=== PATIENT | female | born 1945 | race Caucasian/White ===

== ENCOUNTER 2019-11-08 09:28 | Inpatient (IN) ==
[2019-11-08 11:04] LABS: BASO# 0.02 X1000 (0.0-0.2); BASO% 0.2 % (0.0-0.8); EOS# 0.07 X1000 (0.0-0.7); EOS% 0.6 % (0.0-10.0); HEMATOCRIT 37.8 % (37.0-47.0); HEMOGLOBIN 11.7 g/dL (12.0-16.0); IMM GRAN# 0.04 X1000 (0.0-0.04); IMM GRAN% 0.4 % (0.0-0.5); LYMPH# 1.45 X1000 (1.2-3.4); LYMPH% 13.4 % (20.5-51.1); MCV 90.4 FL (81-99); MONO# 0.62 X1000 (0.11-0.59); MONO% 5.7 % (1.7-9.3); MPV 9.2 FL (7.4-10.4); NEUT% 79.7 % (42.2-75.2); PLT 220 X1000 (130-400); RBC 4.18 XMIL (4.2-5.4); RDW 13.8 % (11.5-14.5)
[2019-11-08 11:33] LABS: ALB/GLOB RATIO 1.2; ALBUMIN 3.5 g/dL (3.5-5.0); CALCIUM 9.4 mg/dL (8.8-10.2); POTASSIUM 3.9 mmol/L (3.5-5.1); TOTAL BILIRUBIN 0.73 mg/dL (0.20-1.00); TOTAL PROTEIN 6.4 g/dL (6.3-8.3)
[2019-11-08 11:37] LABS: INR 0.98; PROTIME 13.1 Seconds (11.0-16.0); PTT 30.4 Seconds (22.3-41.8)
--- NOTE | 2019-11-08 13:06 | EKG Report ---
Test Performed on : 11/08/2019 12:46:35 PM Test Reason : CP Blood Pressure : / mmHG Vent. Rate : 066 BPM Atrial Rate : 066 BPM P-R Int : 166 ms QRS Dur : 070 ms QT Int : 378 ms P-R-T Axes : 025 011 017 degrees QTc Int : 396 ms Sinus rhythm. with occasional premature ventricular complexes. Otherwise normal ECG No previous ECGs available Unconfirmed Result
[2019-11-08] MEDS ORDERED: ZOFRAN IV PRN (13:16)
--- NOTE | 2019-11-08 13:55 | HISTORY AND PHYSICAL ---
HISTORY OF PRESENT ILLNESS: This is a 74-year-old, patient of Dr. Steve Beaver. She had surgery on her left shoulder, I think it was shoulder cuff repair per Dr. Piper, and he had followup with her in the clinic. Her left leg is swollen in comparison to the right, and found a large deep venous thrombosis extending from her groin to her knee. She has already been on Eliquis because she had peripheral vascular disease, and I believe she has bilateral femoral stents and maybe iliac stents, I am not sure, but this was done in 2014. Apparently last year, she had thrombosis of these stents, and her vascular surgeon removed these clots, and she was put on Eliquis. OTHER PAST MEDICAL HISTORY: 1. Hypercholesterolemia, which is controlled. 2. Primary hypothyroidism. She is on Synthroid. 3. She has a newly-diagnosed DVT in the left leg. 4. Peripheral vascular disease. Bilateral femoral stents, it is my understanding, done in 2014, and then thrombectomy last year, and been on Eliquis since that time. PAST SURGICAL HISTORY: She has had lower lumbar surgery, I am not sure if it was kyphoplasty, but she had compression fracture, what sounds like a fracture of L5. This was done in August. Left shoulder surgery done on Thursday, today is Thursday, so it was done 11/04/2019. She had TMJ surgery or jaw surgery per Dr. Lion years ago because of headaches from a crossbite. She has had right knee surgery, I think this was a torn meniscus. Arthroscopic surgery on the left as well, I think this was arthroscopic x2 per Dr. Loco. SOCIAL HISTORY: Negative for tobacco. Negative for ethanol. FAMILY HISTORY: Mother and father are . She has 3 sisters, I think, still living. She lost a twin sister to congestive heart failure about a year ago. ALLERGIES: Allergic to Demerol, IV contrast, codeine, and Phenergan. REVIEW OF SYSTEMS: Constitutional: She does not report any recent weight gain or loss or change in appetite. No fever or chills. HEENT: No change in visual or hearing acuity. Neck: No neck pain or adenopathy. Respiratory: No increased work of breathing or pleuritic pain or productive cough. Cardiovascular: No squeezing or pressure chest pain. No palpitations. Musculoskeletal/Neurologic: Just her left shoulder is sore from surgery. Lower back pain, which is chronic. GI/: No change in her bowel habits. No gross hematochezia. No gross hematuria or dysuria reported. Endocrinologic/hemologic: She has hypothyroidism. She is on Synthroid. Recently, it was checked, and she said it was normal. Skin: Denies any rashes. Extremities: She does note swelling in her left lower extremity from the groin on down to her foot. PHYSICAL EXAMINATION: GENERAL: In the emergency room, a well-developed, well-nourished, white female, awake, alert, and oriented x3, pleasant. VITAL SIGNS: Temp 96.8 degrees, pulse 65, respirations 20, blood pressure 140/80. HEENT: Pupils are equal and round. Oral and nasal mucosa: No sign of mucosal lesions. NECK: Supple. No adenopathy. No thyromegaly. LUNGS: Clear in all lung dorsey. CARDIOVASCULAR: Regular rhythm and rate without murmur or S3. PMI nondisplaced. Carotid, radial, and femoral pulses 2+ and symmetrical. ABDOMEN: Soft, nondistended, nontender. EXTREMITIES: Left leg was quite a bit larger in circumference in her thigh and lower calf than the right leg. No tenderness or pain. There were some light areas of ecchymoses appreciated. No pitting edema. SKIN: Without significant rashes. LABORATORY DATA: White count 10,800, hematocrit 37, platelet count 220,000. Sodium 141, potassium 3.9, chloride 104, bicarb 24, BUN 18, creatinine 1.0, blood sugar 109, calcium 9.4. AST was 49, ALT is 51, alkaline phosphatase is 239, albumin 3.5. ProTime 13.1, INR 0.98. REVIEW OF HOME MEDICATIONS: She is on Eliquis. She only takes it once a day by these notes. She takes ascorbic acid, vitamin E, and biotin combination for nails, and then a biotin gummy she takes once a day. Lipitor 1 tablet at bedtime, tart keith capsule 1 a day, Caltrate plus tablet 1 a day, cinnamon 1 tablet daily, Lasix 20 mg a day as needed, Osteo Bi-Flex tablet 1 a day, Synthroid 1 tablet daily, lorazepam 1 tablet p.o. b.i.d. (I am not sure of the milligram strength on that), Geritol 1 a day, omeprazole 1 a day (there again, I am not sure if that is a 20 or 40 mg), and Adipex-P 1 capsule p.o. daily. ASSESSMENT AND PLAN: 1. Deep venous thrombosis, left leg, probably secondary to her recent surgery, immobilization. She has a history of peripheral vascular disease, for which she was on Eliquis, but she was only apparently taking that once a day. We are going to put her on Lovenox, and I think we probably need to keep her fairly still in the bed for 48 hours, and then hopefully we can release her, but will put her on a higher dose of Eliquis 5 mg twice a day is what we will discharge her on. 2. Status post left shoulder capsule repair, I believe. I will ask Dr. Piper to follow along. I think he just recently saw her in the office and sent her here to the hospital. 3. History of peripheral vascular disease. She had stents placed in both proximal arteries, I think the femoral artery, and apparently she has had thrombosis of these in the past, that is why she was on Eliquis. Appears to have good blood flow in both lower extremities at this time. 4. Hypercholesterolemia, on Lipitor. Will continue her Lipitor. 5. Primary hypothyroidism. Continue her present Synthroid. Again, we need to get the milligram doses on these medicines. 6. Will continue her on omeprazole just for gastrointestinal prophylaxis. Will put her on 40 mg by mouth daily. 7. Chronic lower back pain and osteoarthritis. Aware. 8. Obesity. We will hold the Adipex for now. cc: Manuel Villanueva MD
[2019-11-08] MEDS: LOVENOX SUBQ SCH (14:27)
--- NOTE | 2019-11-08 14:45 | PROVIDER DOCUMENTATION ---
This chart was entered by Breonna Mehta Scribe, acting as scribe for Pj Almonte CRNP. HPI-General Adult - General Chief Complaint: Extremity Pain Stated Complaint: LT LEG PAIN Time Seen by Provider: 11/08/19 09:39 Source: patient, family () Allergies/Adverse Reactions: Patient Allergies Allergy/AdvReac Type Severity Reaction Status Date / Time codeine [Codeine] Allergy Intermediate ITCHING Verified 11/08/19 09:54 lorazepam [From Ativan] Allergy Intermediate Unknown Verified 11/08/19 09:54 meperidine HCl * Allergy Intermediate NAUSEA/VOMI Verified 11/08/19 09:54 [From Demerol] TING mirtazapine [From Remeron] Allergy Intermediate Unknown Verified 11/08/19 09:54 nalbuphine HCl * Allergy Unknown Verified 11/08/19 09:54 [From Nubain] promethazine HCl * Allergy NAUSEA Verified 11/08/19 09:54 [From Phenergan] Home Medications: Home Medication List Medication Instructions Recorded Confirmed Last Taken Type Furosemide [Lasix] 20 mg PO DAILY PRN 08/02/12 11/08/19 08/03/12 15:00 History Apixaban [Eliquis] 1 tab PO DAILY 11/08/19 11/08/19 11/07/19 History Ascorbic Acid/Vitamin E/Biotin 1 tab PO DAILY 11/08/19 11/08/19 11/07/19 History [Hair Skin Nails-Biotin Gummies] Atorvastatin Calcium [Lipitor] 1 tab PO QHS 11/08/19 11/08/19 11/07/19 History C/Sourcherry/Celery/Grape Seed 1 cap PO DAILY 11/08/19 11/08/19 11/07/19 History [Tart Guzmán Capsule] Calcium Carb/Vit D3/Minerals 1 tab PO DAILY 11/08/19 11/08/19 11/07/19 History [Caltrate Plus Tablet] Cinnamon Bark [Cinnamon] 1 cap PO DAILY 11/08/19 11/08/19 11/07/19 History Glucosamine/D3/Boswellia Micheline 1 tab PO DAILY 11/08/19 11/08/19 11/07/19 History [Osteo Bi-Flex Tablet] Levothyroxine Sodium [Synthroid] 1 tab PO DAILY 11/08/19 11/08/19 11/07/19 History Lorazepam 1 tab PO BID PRN 11/08/19 11/08/19 Unknown History Multivit-Min36/Iron/Folic Acid 1 tab PO DAILY 11/08/19 11/08/19 11/07/19 History [Geritol Complete Tablet] Omeprazole 1 cap PO DAILY 11/08/19 11/08/19 11/07/19 History Phentermine HCl [Adipex-P] 1 cap PO DAILY 11/08/19 11/08/19 11/07/19 History - History of Present Illness -Gen Adult Nature of Presenting Problems: 74 yowf presents to the ed with c/o DVT in LLE. pt sts had sx Thursday on left shoulder 11/04/[address] Martinez and noted swelling in LLE later that night. pt was off blood thinner 5 days prior to sx. pt had US done today and once home got a call and was told to come to ED due to DVT in LLE. Location of Pain/Injury: reports: lower extremity (L) Pain Radiation: reports: no radiation Quality of Pain: reports: dull Severity: reports: moderate Onset/Duration: reports: other (11/04/19) Timing: reports: still present, getting worse Context/Activities at Onset: reports: other (recent sx) Modifying Factors: improves with: nothing Associated Symptoms: reports: trouble walking, other (LLE). denies: back/neck pain, chest pain, cough, diarrhea, fever/chills, headaches, nausea, shortness of breath, vomiting Similar Symptoms Previously?: Yes (hx of DVT) Recently seen or treated by another doctor?: Yes (dr martinez sx) Review of Systems - Adult - REVIEW OF SYSTEMS - ADULT Constitutional: denies: chills, fever Eyes: reports: no symptoms reported Ears, Nose, Mouth & Throat: reports: no symptoms reported Cardiovascular: denies: chest pain, palpitations Respiratory: denies: cough, shortness of breath, wheezing Gastrointestinal: denies: abdominal pain, diarrhea, nausea, vomiting Genitourinary: reports: no symptoms reported Musculoskeletal: reports: see HPI, other (LLE). denies: back pain Integumentary: reports: no symptoms reported Neurological: denies: dizziness/vertigo, headache/migraines Psychiatric: reports: no symptoms reported Endocrine: reports: no symptoms reported Hematologic/Lymphatic: reports: see HPI, blood clots Allergic/Immunologic: reports: no symptoms reported All Other Systems: Reviewed and Negative Past History - Adult - PAST MEDICAL HISTORY-ADULT Review of Records: reports: Old Records Reviewed, Nursing Assessment Review, Medications Reviewed, Social history reviewed & non-contributory. Major Childhood Illnesses: reports: denies history Cardiovascular: reports: blood clots Respiratory: reports: denies history Gastrointestinal: reports: denies history Obstetrical/Gynecological: reports: denies history Genitourinary: reports: denies history Musculoskeletal: reports: denies history Neurological: reports: denies history Psychiatric: reports: anxiety Endocrine/Immune: reports: thyroid disorder Other Conditions: reports: denies history - PRIOR SURGERIES/PROCEDURES Surgical/Procedure History: reports: recent surgery ([id number]), cholecystectomy, hysterectomy, joint replacement - IMMUNIZATION STATUS Childhood Immunizations: See Nurse Assessment Flu Vaccine: See Nurse Assessment - FAMILY HISTORY Family History: reviewed, not pertinent - SOCIAL HISTORY Smoking: denies Substance Use: denies Living Situation: family Physical Exam-General - PHYSICAL EXAM-ADULT Initial Vital Signs Reviewed: Yes - CONSTITUTIONAL General Appearance: appears well, alert, no apparent distress, obese, anxious - EYES Eyes: PERRL/EOMI, pink conjunctivae - HEAD, EARS, NOSE, MOUTH & THROAT HENMT: moist mucous membranes - NECK Neck: full range of motion, supple, normal inspection - RESPIRATORY Respiratory: lungs clear, normal breath sounds, no respiratory distress, no accessory muscle use - CARDIOVASCULAR Cardiovascular: normal peripheral pulses, regular rate, rhythm - CHEST (BREASTS) Chest/Breast: deferred - GASTROINTESTINAL (ABDOMEN) Abdominal Exam: normal bowel sounds, non tender, soft - GENITOURINARY Female Genitalia/Pelvic Exam: deferred Rectal Exam: deferred Hemoccult Exam: deferred - MUSCULOSKELETAL Back Exam: normal inspection, no vertebral tenderness Extremity: normal range of motion, normal capillary refill, pelvis stable, calf tenderness (L), swelling (LLE), tenderness (LLE), other (ecchymosis LLE) Peripheral Pulses: dorsalis-pedis (L): 1+ - SKIN Integumentary: normal turgor, warm/dry, ecchymosis (LLE), swelling (LLE), tenderness (LLE) - NEUROLOGIC Neurologic: grossly normal - PSYCHIATRIC Psych/Mental Status: normal mood/affect, normal thought content, normal thought process, oriented x 3 Progress - PLAN OF CARE/RESULTS Progress/Plan/Lab Results: Vital Signs - 8 hr 11/08/19 09:31 11/08/19 09:49 11/08/19 09:52 Temperature 96.8 F L Pulse Rate 64 67 Respiratory Rate 18 21 Blood Pressure 140/80 148/78 O2 Sat by Pulse Oximetry 99 98 99 11/08/19 10:00 Temperature Pulse Rate 66 Respiratory Rate 21 Blood Pressure O2 Sat by Pulse Oximetry 98 Result Diagrams: 11/08/19 10:56 11/08/19 10:56 - REASSESSMENT Reassessment #1 Time Reassessed: 10:31 (discussed CTA with Dr Bragg, states no need due to the treatment is the same) Reassessment #2 Time Reassessed: 12:15 (pt and family updated of propable admission) - EKG 1 Time of EKG reading by physician:: 12:46 EKG Read and Signed by:: Favian Bragg EKG Interpretation (*Must complete 3 of following elements*): Normal Rate: 66 Rhythm: sinus rhythm with occ pvc [place]: normal QRS: PVC's LA Interval: normal ST Wave: normal - ULTRASOUND (By Radiology) 1 US Study: Lower Ext Impression: See EMR Report (DVT in L common femoral - verbal report from groin to the knee) - CONSULTS/PCP/HOSPITALIST Notification #1 *Consult/PCP/Hospitalist*: JAMEE Mattson hospitalist Time Discussed: 11:53 Departure - Departure Date of Disposition Decision: 11/08/19 Time of Disposition Decision: 11:54 DIAGNOSIS: DVT (deep venous thrombosis) Qualifiers: DVT location: lower extremity Affected thrombotic vein of extremity: femoral Chronicity: acute Laterality: left Qualified Code(s): I82.412 - Acute embolism and thrombosis of left femoral vein Disposition: ADMITTED INPATIENT 09 Certified Medical Emergency: Emergent Condition: Stable Additional Instructions: . Referrals and Follow-Ups: Steve Beaver [Primary Care Provider] - Discharge Education: Deep Vein Thrombosis - Critical Care Note This patient required my direct & personal management of CC.: No Attestation - Physician/ KARLENE Attestation Patient care was provided by Advanced Practice Provider:: Yes Advanced Practice Provider:: Pj Almonte Advanced Practice Provider documentation review:: The Mid-level provider documentation, treatment plan and medical decision making was reviewed by the physician who agrees with all treatment and medical decision making by the MLP. The physician spent face to face time with patient:: No Advanced Practice Provider documentation review:: Supervising physician onsite and consulted in the evaluation and care of this patient. The physician did not have a face to face encounter with the patient. This chart was documented by the indicated scribe, (Breonna Mehta Scribe) and accurately reflects the services I performed and decisions made by me, Pj Almonte, JAMEE, as attested by the provider's signature.
[2019-11-08] MEDS ORDERED: LIPITOR PO SCH (21:00)
[2019-11-08] MEDS: NORCO-7.5 PO PRN (22:14)
[2019-11-09] MEDS: LOVENOX SUBQ SCH ×2 (01:41→14:09)
[2019-11-09] MEDS: PRILOSEC PO SCH (06:41)
[2019-11-09] MEDS ORDERED: SYNTHROID PO SCH (07:00)
[2019-11-09 07:20] LABS: BASO# 0.01 X1000 (0.0-0.2); BASO% 0.1 % (0.0-0.8); EOS# 0.16 X1000 (0.0-0.7); EOS% 2.4 % (0.0-10.0); HEMATOCRIT 36.1 % (37.0-47.0); HEMOGLOBIN 11.3 g/dL (12.0-16.0); LYMPH# 1.57 X1000 (1.2-3.4); LYMPH% 23.1 % (20.5-51.1); MCH 28.5 PG (27-31); MCHC 31.3 g/dL (33-37); MCV 90.9 FL (81-99); MONO# 0.49 X1000 (0.11-0.59); MONO% 7.2 % (1.7-9.3); MPV 9.2 FL (7.4-10.4); NEUT# 4.57 X1000 (1.4-6.5); NEUT% 67.2 % (42.2-75.2); PLT 226 X1000 (130-400); RBC 3.97 XMIL (4.2-5.4); RDW 13.9 % (11.5-14.5)
[2019-11-09 07:39] LABS: AGAP 13; ALB/GLOB RATIO 1.2; ALBUMIN 3.2 g/dL (3.5-5.0); ALKALINE PHOSPHATASE 198 U/L (32-104); BUN 16 mg/dL (8-22); CALCIUM 9.1 mg/dL (8.8-10.2); CHLORIDE 105 mmol/L (98-107); COSMO 284; CREATININE 0.9 mg/dL (0.5-0.9); ESTIMATED GFR > 60; GLUCOSE 89 mg/dL (70-104); GOT 29 U/L (10-30); GPT 36 U/L (10-36); MAGNESIUM 1.7 mg/dL (1.5-2.7); POTASSIUM 4.1 mmol/L (3.5-5.1); SODIUM 142 mmol/L (136-145); TCO2 24 mmol/L (25-35); TOTAL BILIRUBIN 0.63 mg/dL (0.20-1.00); TOTAL PROTEIN 5.8 g/dL (6.3-8.3)
[2019-11-09 07:44] LABS: INR 1.1; PROTIME 14.4 Seconds (11.0-16.0)
[2019-11-09 07:45] LABS: PTT 43.8 Seconds (22.3-41.8)
[2019-11-09 08:02] LABS: TSH 0.07 uIUmL (0.27-4.20)
[2019-11-09 08:04] LABS: FREE T4 2.05 ng/dL (0.93-1.70)
[2019-11-09] MEDS ORDERED: CALTRATE PLUS TABLET PO SCH (09:00)
[2019-11-09] MEDS: PATIENT'S OWN MED PO SCH ×4 (09:40→09:41)
[2019-11-09] MEDS: CENTRUM SILVER PO SCH (09:41)
[2019-11-09] MEDS: CALTRATE 600 + D PO SCH (09:41)
[2019-11-09] MEDS: NORCO-7.5 PO PRN ×2 (09:42→16:44)
[2019-11-09 10:01] LABS: URINE SOURCE CATH
[2019-11-09 10:07] LABS: BILIRUBIN URINE NEGATIVE (NEGATIVE); BLOOD URINE NEGATIVE (NEGATIVE); COLOR YELLOW; GLUCOSE URINE NEGATIVE (NEGATIVE); KETONE URINE NEGATIVE (NEGATIVE); LEUKOCYTES URINE NEGATIVE (NEGATIVE); NITRITE URINE NEGATIVE (NEGATIVE); PH URINE 5.5; PROTEIN URINE NEGATIVE (NEGATIVE); SP GRAVITY URINE 1.013; TURBIDITY URINE CLEAR (CLEAR); UROBILINOGEN URINE NORMAL (NORMAL)
[2019-11-09 10:09] LABS: UR EPITHELIAL CELLS <10 /HPF (<10); URINE BACTERIA NEGATIVE /HPF; URINE RBC <10 /HPF (<10); URINE WBC <10 /HPF (<10)
--- NOTE | 2019-11-09 10:55 | ORTHOPAEDICS CONSULTATION ---
DATE: 11/09/2019 HISTORY OF PRESENT ILLNESS: Ms. Cuevas is roughly 1 week status post left rotator cuff repair. She had some lower extremity swelling, was evaluated on the and found to have a significant DVT, admitted by the hospitalist for anticoagulation. We were consulted just for followup of the shoulder. She reports predominantly just usual shoulder soreness at this point. She denies any significant increase in pain. Her predominant complaint is some swelling over the left leg. PAST MEDICAL HISTORY: Up-to-date and accurate per the chart. REVIEW OF SYSTEMS: Up-to-date and accurate per the chart. PHYSICAL EXAMINATION: Physical exam reveals left shoulder to be clean and dry. Her arthroscopic incisions are clean and dry with no active bleeding. She has minimal swelling with no signs of complication or infection about the shoulder. ASSESSMENT: 1. Status post left rotator cuff repair. 2. Left lower extremity deep vein thrombosis. PLAN: I have discussed with Ms. Cuevas that she can begin her shoulder rehab when she is discharged from the hospital. She may be here through the remainder of the week to get fully anticoagulated for the extensive DVT. She will have an appointment to follow up with Dr. Piper on the . She can resume therapy next week. We will be available in the interim if needed. cc: Carlos Albert MD
--- NOTE | 2019-11-09 11:49 | PROGRESS NOTE ---
DATE: 11/09/2019 SUBJECTIVE: The patient is resting comfortably in bed, not in any obvious distress. OBJECTIVE: Vital Signs: Temperature is 98.3 degrees, pulse is 65, respiratory rate 17, blood pressure is 142/72, oxygen saturation is 100%. HEENT: She is atraumatic, normocephalic. Cardiovascular: S1, S2. Respiratory: Has evidence of good air entry bilaterally. Abdomen: Obese, nontender. No masses felt. Extremities: Left lower extremity is grossly swollen and also edematous. Central Nervous System: No obvious focal deficits noted. LABORATORY DATA: WBC 6.8, hematocrit is 36.1, with a platelet count of 226,000. INR is 1.10. Sodium is 142, potassium 4.1, chloride is 105, bicarb 24, BUN is 16, creatinine 0.9. . TSH is 0.07, free T4 is 2.05. ASSESSMENT AND PLAN: 1. Deep venous thrombosis, left lower extremity. The patient is currently on Lovenox 100 mg subcutaneously every 12 hours. The patient will need to be transitioned to an oral agent, either Eliquis or Xarelto, once she is clinically stable and ready for discharge home. 2. History of left rotator cuff repair. Optimize pain control. Recommend physical therapy when considered appropriate by the Orthopedic team. Orthopedics is following. 3. Hypothyroidism. The patient's thyroid function tests indicate that she may be getting excess of thyroid hormone. As such, I will adjust her levothyroxine dose downwards. 4. History of peripheral arterial disease. Aware. 5. Hyperlipidemia. Continue atorvastatin. 6. Anemia. Check iron studies, along with B12 and folate level. 7. History of osteoarthritis. Optimize pain control. cc: Miguel Pearson MD [facility]
[2019-11-09] MEDS: LIPITOR PO SCH (20:46)
[2019-11-10] MEDS: LOVENOX SUBQ SCH ×2 (01:18→14:04)
[2019-11-10] MEDS: PRILOSEC PO SCH (06:09)
[2019-11-10] MEDS: SYNTHROID PO SCH (06:09)
[2019-11-10 07:51] LABS: BASO# 0.03 X1000 (0.0-0.2); BASO% 0.5 % (0.0-0.8); EOS# 0.12 X1000 (0.0-0.7); EOS% 2.2 % (0.0-10.0); HEMATOCRIT 37.2 % (37.0-47.0); HEMOGLOBIN 11.5 g/dL (12.0-16.0); LYMPH# 1.78 X1000 (1.2-3.4); LYMPH% 32.1 % (20.5-51.1); MCH 28.3 PG (27-31); MCHC 30.9 g/dL (33-37); MCV 91.4 FL (81-99); MONO# 0.41 X1000 (0.11-0.59); MONO% 7.4 % (1.7-9.3); MPV 9.5 FL (7.4-10.4); NEUT% 57.8 % (42.2-75.2); PLT 250 X1000 (130-400); RBC 4.07 XMIL (4.2-5.4); WBC 5.54 X1000 (4.8-10.8)
[2019-11-10 08:14] LABS: AGAP 10; ALB/GLOB RATIO 1.2; ALBUMIN 3.3 g/dL (3.5-5.0); ALKALINE PHOSPHATASE 187 U/L (32-104); BUN 18 mg/dL (8-22); CALCIUM 9.2 mg/dL (8.8-10.2); CHLORIDE 104 mmol/L (98-107); COSMO 281; CREATININE 0.9 mg/dL (0.5-0.9); ESTIMATED GFR > 60; GLUCOSE 98 mg/dL (70-104); GOT 20 U/L (10-30); GPT 27 U/L (10-36); MAGNESIUM 1.9 mg/dL (1.5-2.7); POTASSIUM 4.1 mmol/L (3.5-5.1); SODIUM 140 mmol/L (136-145); TCO2 26 mmol/L (25-35); TOTAL BILIRUBIN 0.58 mg/dL (0.20-1.00)
[2019-11-10 08:19] LABS: IRON SATURATION 17 %; TIBC 225 ug/dL; TOTAL IRON 39 ug/dL (49-151); UNBOUND IRON 186 ug/dL (112-346)
[2019-11-10] MEDS: NORCO-7.5 PO PRN ×2 (09:43→21:00)
[2019-11-10] MEDS: CALTRATE 600 + D PO SCH (09:43)
[2019-11-10] MEDS: CENTRUM SILVER PO SCH (09:43)
[2019-11-10] MEDS: PATIENT'S OWN MED PO SCH ×4 (09:44)
--- NOTE | 2019-11-10 14:44 | Diag Imaging Result Doc PS360 ---
EXAM: CT ANGIOGRM PULMONARY ARTERIES INDICATION: r/o pe TECHNIQUE: This exam was performed using automated exposure control, adjustment of mA or kV according to patient size, and/or use of iterative reconstruction technique. Thin section axial images and 3-D MIPS were obtained. COMPARISON: None. FINDINGS: There is no evidence of pulmonary embolism. There is minimal aortic atherosclerotic calcification. There is no evidence of aortic dissection or aneurysm. There is no cardiomegaly. There is no evidence of significant mediastinal or hilar lymphadenopathy. There is minimal subsegmental atelectasis in the lingula, right middle lobe, and the lower lobes at the bases. The lungs are grossly clear, otherwise. There is no pleural fluid collection and no pneumothorax. Limited views of the upper abdomen reveals lobulated renal contours bilaterally indicating persistent lobulations or renal cortical scarring. The upper abdomen is essentially unremarkable, otherwise. There is thoracic spondylosis. There is no evidence of acute osseous abnormality. IMPRESSION: 1.Mild subsegmental atelectasis at the lower lung zones bilaterally. 2.No evidence of pulmonary embolism or other definite acute chest pathology, otherwise. Electronically signed by Carlos Marcos 11/10/2019 2:41 PM
--- NOTE | 2019-11-10 14:47 | PROGRESS NOTE ---
DATE: 11/10/2019 SUBJECTIVE: Patient seated on the chair. Not in any obvious distress. Has family present in the room. OBJECTIVE: Vital signs: Vital signs are as follows: Temperature 98 degrees, pulse 79, respiratory rate is 19, blood pressure 153/67, oxygen saturation is 100%. HEENT: She is atraumatic, normocephalic. Cardiovascular system: S1, S2. Respiratory system: Has evidence of good air entry bilaterally. Abdomen: Soft, nontender. No masses felt. Extremities: Left lower extremity grossly edematous. LABORATORY DATA: WBC is 5.054, hematocrit is 37.2 with a platelet count of 250. Sodium is 140, potassium 4.1, chloride is 104, bicarbonate 26. BUN is 18, creatinine 0.9. FINAL ASSESSMENT AND PLAN: 1. Deep vein thrombosis left lower extremity. Continue patient on Lovenox 100 mg subcutaneous every 12 hours. We will also obtain a computed tomography angiography of the chest to rule out any evidence of pulmonary embolism. Consult with Surgery to consider putting an inferior vena cava filter. 2. History of left rotator cuff repair. Optimize pain control. Orthopedics following. 3. Hypothyroidism. Continue levothyroxine. 4. History of peripheral arthritis. Aware. 5. History of hyperlipidemia. Continue atorvastatin. 6. Anemia. Follow up on hemoglobin and hematocrit. Transfuse packed red blood cells as needed. 7. History of osteoarthritis. Optimize pain control. 8. Deep vein thrombosis prophylaxis. Patient is currently on Lovenox. cc: Miguel Pearson MD
--- NOTE | 2019-11-10 20:43 | CONSULTATION ---
DATE OF CONSULTATION: 11/10/2019 HISTORY OF PRESENT ILLNESS: Ms. Chuyita Cuevas is a 74-year-old, overweight, white female who recently underwent shoulder surgery and has developed a left lower extremity deep venous thrombosis. She has a history of deep venous thrombosis even a year ago. She also has peripheral vascular disease with history of placement of iliac stents in [place]. She has been on chronic anticoagulation, but it was subtherapeutic because she had some problems with bleeding, and recently she stopped her anticoagulation for this surgery. We were asked to evaluate her for inferior vena cava filter. HOME MEDICATIONS: 1. Eliquis 1 tablet a day. 2. Vitamins. 3. Lipitor. 4. Calcium. 5. Lasix. 6. Lorazepam. 7. Synthroid. 8. Omeprazole. 9. Adipex. ALLERGIES: Codeine, Ativan, Demerol, Remeron, Nubain, and Phenergan. PAST MEDICAL HISTORY: 1. Hypothyroidism. 2. Deep venous thrombosis. 3. Cholecystectomy. 4. Hysterectomy. 5. Joint replacement. 6. Recent shoulder surgery, 11/04/2019. SOCIAL HISTORY: Family was at the bedside. She does not smoke. FAMILY HISTORY: Family history was reviewed with the patient and was noncontributory. REVIEW OF SYSTEMS: 14 point review of systems was performed and was essentially negative except for the History of Present Illness. PHYSICAL EXAMINATION: General: Ms. Chuyita Cuevas is a morbidly obese, white female. She is in no acute distress. She has a sling on for her shoulder. Her left lower extremity is swollen. She is awake, cooperative, no acute distress. HEENT: No jaundice. No oral lesions. No cervical or supraclavicular lymphadenopathy. Heart: Regular rate. Lungs: Clear. Abdomen: Soft without tenderness. Extremities: She had palpable femoral pulses. Her left lower extremity is swollen compared to her right. Both feet are warm. Neurological: She has no focal deficit. IMPRESSION: Recurrent deep venous thrombosis of the lower extremities. A chest CT scan suggests no pulmonary embolus. She has been on subtherapeutic Eliquis because of problems with bleeding last year. Her blood thinner was also stopped recently for her orthopedic procedure. PLAN: I agree with therapeutic doses of Lovenox or even Eliquis at home and as long as she has no bleeding problems, I would avoid inferior vena cava filter at this time. cc: Chaya Mehta MD
[2019-11-10] MEDS: LIPITOR PO SCH (21:00)
[2019-11-11] MEDS: LOVENOX SUBQ SCH ×2 (03:48→14:25)
[2019-11-11] MEDS: PRILOSEC PO SCH (06:48)
[2019-11-11] MEDS: SYNTHROID PO SCH (06:48)
[2019-11-11 07:25] LABS: BASO# 0.03 X1000 (0.0-0.2); BASO% 0.6 % (0.0-0.8); EOS# 0.14 X1000 (0.0-0.7); EOS% 2.8 % (0.0-10.0); HEMATOCRIT 35.8 % (37.0-47.0); HEMOGLOBIN 11.2 g/dL (12.0-16.0); LYMPH# 1.65 X1000 (1.2-3.4); LYMPH% 33.5 % (20.5-51.1); MCHC 31.3 g/dL (33-37); MCV 92.7 FL (81-99); MONO# 0.42 X1000 (0.11-0.59); MONO% 8.5 % (1.7-9.3); MPV 9.4 FL (7.4-10.4); NEUT# 2.69 X1000 (1.4-6.5); NEUT% 54.6 % (42.2-75.2); PLT 244 X1000 (130-400); RBC 3.86 XMIL (4.2-5.4); RDW 14.2 % (11.5-14.5); WBC 4.93 X1000 (4.8-10.8)
[2019-11-11 08:07] LABS: ALB/GLOB RATIO 1.6; ALBUMIN 3.4 g/dL (3.5-5.0); CALCIUM 9.2 mg/dL (8.8-10.2); MAGNESIUM 1.9 mg/dL (1.5-2.7); POTASSIUM 4.4 mmol/L (3.5-5.1); TOTAL BILIRUBIN 0.5 mg/dL (0.20-1.00); TOTAL PROTEIN 5.5 g/dL (6.3-8.3)
[2019-11-11] MEDS: PATIENT'S OWN MED PO SCH ×4 (10:58→10:59)
[2019-11-11] MEDS: CENTRUM SILVER PO SCH (10:58)
[2019-11-11] MEDS: CALTRATE 600 + D PO SCH (10:58)
--- NOTE | 2019-11-11 18:20 | PROGRESS NOTE ---
DATE: 11/11/2019 INTERVAL HISTORY: The patient's left lower extremity still quite swollen. She reports pain with touch or attempting to put weight on that leg. We discussed discharge options including going home with home health versus rehab. The patient has not really ambulated significantly yet. Also awaiting PT evaluation before making a final decision. REVIEW OF SYSTEMS: Twelve point review of systems negative except as per interval history. LABORATORY DATA: WBC 4.9, hemoglobin 11.2, hematocrit 35.8, platelets 244,000. Sodium 142, potassium 4.4, BUN 19, creatinine 1.0. VITAL SIGNS: T-max 98 degrees, pulse 89, respirations 18, blood pressure 144/81. O2 saturation 97% on 2 L via nasal cannula. PHYSICAL EXAMINATION: General: No acute distress. Vitals: As above. HEENT: Normocephalic, atraumatic. Moist mucous membranes. Cardiovascular: Regular rate and rhythm. No murmurs noted. Pulmonary: Clear to auscultation bilaterally. No wheezing, rales, or rhonchi. Abdomen: Soft, nontender, nondistended. Bowel sounds positive. Extremities: Peripheral pulses intact. Left lower extremity still markedly edematous with 3+ pitting edema. Also appears to have some dysesthesias with widespread tenderness to palpation of that limb. Neurologic: Cranial nerves grossly intact. No focal deficits. Psychiatric: Normal mood and affect. Awake, alert, oriented x3. ASSESSMENT AND PLAN: 1. Acute deep venous thrombosis of left lower extremity. The patient has been on Lovenox b.i.d. thus far. She was on Eliquis at home but at a subtherapeutic dose. Surgery was consulted to consider IVC filter, but they thought it would be a better idea to place her on a therapeutic dose of blood thinner and avoid IVC filter. We will go ahead and put on Eliquis to start in the morning. 2. Recent left rotator cuff surgery. Continue pain management. 3. Hypothyroidism. Continue Synthroid. 4. Hyperlipidemia. Continue statin. 5. Anemia stable. Likely anemia of chronic disease. 6. Arthritis. Continue symptomatic treatment. 7. Disposition. Okay at this point to transition to oral anticoagulant. Consider discharge, but patient with recent left shoulder surgery and still with marked swelling of left lower extremity limiting mobility. We will get physical therapy to walk her and see how she does, but strongly suspect she will need rehab placement. Hopefully, if she does better than expected with PT, then may be able to discharge home. Otherwise, anticipate discharge to rehab on Thursday pending bed availability.
[2019-11-11] MEDS: LIPITOR PO SCH (21:11)
[2019-11-12] MEDS: LOVENOX SUBQ SCH ×2 (02:03→14:39)
[2019-11-12] MEDS: SYNTHROID PO SCH (06:17)
[2019-11-12] MEDS: PRILOSEC PO SCH (06:17)
[2019-11-12 07:25] LABS: BASO# 0.02 X1000 (0.0-0.2); BASO% 0.4 % (0.0-0.8); EOS# 0.13 X1000 (0.0-0.7); EOS% 2.8 % (0.0-10.0); HEMATOCRIT 35.2 % (37.0-47.0); HEMOGLOBIN 10.8 g/dL (12.0-16.0); LYMPH# 1.76 X1000 (1.2-3.4); MCH 27.8 PG (27-31); MCHC 30.7 g/dL (33-37); MCV 90.7 FL (81-99); MONO% 8.6 % (1.7-9.3); MPV 9.3 FL (7.4-10.4); NEUT# 2.32 X1000 (1.4-6.5); NEUT% 50.2 % (42.2-75.2); PLT 294 X1000 (130-400); RBC 3.88 XMIL (4.2-5.4); RDW 13.9 % (11.5-14.5); WBC 4.63 X1000 (4.8-10.8)
[2019-11-12 07:58] LABS: ALB/GLOB RATIO 1.3; ALBUMIN 3.2 g/dL (3.5-5.0); CALCIUM 8.9 mg/dL (8.8-10.2); POTASSIUM 4.3 mmol/L (3.5-5.1); TOTAL BILIRUBIN 0.51 mg/dL (0.20-1.00); TOTAL PROTEIN 5.7 g/dL (6.3-8.3)
[2019-11-12] MEDS: CALTRATE 600 + D PO SCH (10:42)
[2019-11-12] MEDS: PATIENT'S OWN MED PO SCH ×4 (10:42→10:43)
[2019-11-12] MEDS: CENTRUM SILVER PO SCH (10:42)
--- NOTE | 2019-11-12 16:02 | PROGRESS NOTE ---
DATE: 11/12/2019 SUBJECTIVE: This patient seems to be feeling better. She does have generalized weakness and pain at the level of the left upper extremity and lower extremity. We have a venous ultrasound done on 11/08/2018 that showed extensive DVT in the left lower extremity. She has been placed on Lovenox twice a day, and now I have placed this patient on Eliquis twice a day. I will start with 10 mg twice a day for 7 days and then 5 twice a day. She used to be on Eliquis, but apparently has been decreased to once a day and then she stopped the medication for the surgery. OBJECTIVE: Vital Signs: Temperature 97.9 degrees, pulse 71, respiratory rate 20, blood pressure 145/64, oxygen saturation 100% on room air. HEENT: Head normocephalic, no trauma. PERRLA. Neck: Supple. No JVD. No masses. Central trachea. Chest: Clear to auscultation. No wheezing. Abdomen: Soft, nontender, nondistended. No hepatosplenomegaly. Extremities: Left lower extremity is swollen around 2+ to 3+ pitting edema. Also, she has some pain to palpation in both legs. Neurological examination: The patient is awake, alert. She is oriented x3. No focal deficits. LABORATORY: WBC 4.6, hemoglobin 10.8, hematocrit 35.2, platelets 294. Sodium 140, potassium 4.3, chloride 105, bicarbonate 25. BUN 20, creatinine 1, glucose 101, calcium 8.9. AST 29, ALT 23, alkaline phosphatase 157, albumin 3.2. ASSESSMENT AND PLAN: 1. Acute deep vein thrombosis of the left lower extremity. This patient has been placed on Lovenox therapeutic twice a day which I which I have stopped. I put her on Eliquis twice a day. At home, it looks like she was taking just once a day and then she was placed on once a day. She had a surgery recently and she stopped completely anticoagulations. Now I will put her back on Eliquis twice a day and monitor. This patient should go to a rehabilitation center. 2. Recent left rotator cuff surgery. Continue with pain management. 3. Hypothyroidism. Continue with Synthroid. 4. Hyperlipidemia. She is on statins. 5. Anemia. Stable. 6. Arthritis. Continue with symptomatic treatment. Overall this patient is better. She is working with physical therapy. I have placed this patient back on Eliquis, but instead of once a day, it is going to be twice a day. I talked to the patient and recommended her to follow a silk screen printer helper/oncologist. 7. Generalized weakness and physical deconditioning. I have requested Deportation Examiner to evaluate this patient for rehab center and she agreed with that. cc: Agustín Jeffery MD
[2019-11-12] MEDS: LIPITOR PO SCH ×2 (19:39→20:08)
[2019-11-12] MEDS: ELIQUIS PO SCH ×2 (19:39→20:08)
[2019-11-13] MEDS: TYLENOL PO PRN ×2 (06:03→22:24)
[2019-11-13] MEDS: NORCO-7.5 PO PRN ×5 (06:04→23:06)
[2019-11-13] MEDS: PRILOSEC PO SCH (06:05)
[2019-11-13] MEDS: SYNTHROID PO SCH (06:05)
[2019-11-13 08:08] LABS: BASO# 0.03 X1000 (0.0-0.2); BASO% 0.6 % (0.0-0.8); EOS# 0.16 X1000 (0.0-0.7); EOS% 3.3 % (0.0-10.0); HEMATOCRIT 35.9 % (37.0-47.0); HEMOGLOBIN 10.9 g/dL (12.0-16.0); LYMPH# 1.68 X1000 (1.2-3.4); LYMPH% 35.1 % (20.5-51.1); MCH 28.7 PG (27-31); MCHC 30.4 g/dL (33-37); MCV 94.5 FL (81-99); MONO# 0.45 X1000 (0.11-0.59); MONO% 9.4 % (1.7-9.3); MPV 9.8 FL (7.4-10.4); NEUT# 2.47 X1000 (1.4-6.5); NEUT% 51.6 % (42.2-75.2); PLT 284 X1000 (130-400); RDW 14.1 % (11.5-14.5); WBC 4.79 X1000 (4.8-10.8)
[2019-11-13 08:31] LABS: ALB/GLOB RATIO 1.1; ALBUMIN 3.1 g/dL (3.5-5.0); POTASSIUM 4.7 mmol/L (3.5-5.1); TOTAL BILIRUBIN 0.56 mg/dL (0.20-1.00); TOTAL PROTEIN 5.9 g/dL (6.3-8.3)
[2019-11-13] MEDS: CALTRATE 600 + D PO SCH (09:26)
[2019-11-13] MEDS: PATIENT'S OWN MED PO SCH ×4 (09:26→09:27)
[2019-11-13] MEDS: CENTRUM SILVER PO SCH (09:26)
[2019-11-13] MEDS: ELIQUIS PO SCH ×2 (09:26→22:23)
[2019-11-13] MEDS ORDERED: MORPHINE IV ONE (13:30)
[2019-11-13] MEDS: MIRALAX PO SCH (13:58)
--- NOTE | 2019-11-13 14:20 | PROGRESS NOTE ---
DATE: 11/13/2019 SUBJECTIVE: This patient seems to be feeling better, but she is complaining of left shoulder pain. As per the patient, she has been out of pain for a couple of days, but she believes she did some movement while she was sleeping, and now the shoulder is painful. She has been getting pain medication. Otherwise her left leg is looking better. I will continue with the same management. OBJECTIVE: Vital Signs: Temperature 97.4 degrees, pulse 63, respiratory rate 20, blood pressure 143/60, oxygen saturation 100% on room air. HEENT: Head normocephalic, no trauma, PERRLA. Neck: Supple. No JVD. No masses. Central trachea. Chest: Clear to auscultation. No wheezing. No rales. Tenderness to palpation at the level of the left shoulder. Abdomen: Soft, nontender, nondistended. No hepatosplenomegaly. Extremities: Left lower extremity is swollen, around 2+ pitting edema. It is getting better though. She has some pain to palpation in both legs. Neurological: The patient is awake, alert. She is oriented x3. No focal deficits but pain at the level of the left shoulder. LABORATORY: WBC 4.7, hemoglobin 10.9, hematocrit 35.9, platelets 284,000. Sodium 139, potassium 4.7, chloride 105, bicarbonate 23, BUN 19, creatinine 1.0, albumin 3.1. ASSESSMENT AND PLAN: 1. Acute deep venous thrombosis of the left lower extremity. This patient has been placed on Lovenox therapeutic twice a day, which I have stopped already and put her on Eliquis twice a day. At home, it looks like she was taking Eliquis as well once a day. She had a surgery recently, and she stopped completely the anticoagulation. 2. Recent left rotator cuff surgery, now painful. Continue with pain management. 3. Hypothyroidism. Continue with Synthroid. 4. Hyperlipidemia. Continue with statins. 5. Anemia. Stable. 6. Arthritis. Continue with symptomatic treatment. 7. Generalized weakness and physical deconditioning. I have requested Clinical Coordinator to evaluate this patient for rehab center placement. I have placed this patient on Eliquis 10 mg p.o. twice a day for 7 days and then will be 5 mg twice a day. The patient seems to understand, and she wants to continue with the treatment. cc: Agustín Jeffery MD
[2019-11-13] MEDS ORDERED: DILAUDID IV ONE (15:25)
[2019-11-13] MEDS: LIPITOR PO SCH (22:23)
[2019-11-14] MEDS: NORCO-7.5 PO PRN ×3 (03:16→10:23)
[2019-11-14] MEDS: PRILOSEC PO SCH (06:46)
[2019-11-14] MEDS: SYNTHROID PO SCH (06:46)
[2019-11-14 08:11] LABS: BASO# 0.02 X1000 (0.0-0.2); BASO% 0.3 % (0.0-0.8); EOS# 0.11 X1000 (0.0-0.7); EOS% 1.7 % (0.0-10.0); HEMATOCRIT 36.1 % (37.0-47.0); HEMOGLOBIN 11.1 g/dL (12.0-16.0); LYMPH# 1.55 X1000 (1.2-3.4); LYMPH% 23.5 % (20.5-51.1); MCHC 30.7 g/dL (33-37); MCV 91.2 FL (81-99); MONO# 0.55 X1000 (0.11-0.59); MONO% 8.3 % (1.7-9.3); MPV 9.5 FL (7.4-10.4); NEUT# 4.36 X1000 (1.4-6.5); NEUT% 66.2 % (42.2-75.2); PLT 343 X1000 (130-400); RBC 3.96 XMIL (4.2-5.4); RDW 13.6 % (11.5-14.5); WBC 6.59 X1000 (4.8-10.8)
[2019-11-14 08:26] LABS: ALB/GLOB RATIO 1.1; ALBUMIN 3.1 g/dL (3.5-5.0); CALCIUM 8.9 mg/dL (8.8-10.2); MAGNESIUM 1.9 mg/dL (1.5-2.7); POTASSIUM 4.3 mmol/L (3.5-5.1); TOTAL BILIRUBIN 0.59 mg/dL (0.20-1.00); TOTAL PROTEIN 5.8 g/dL (6.3-8.3)
[2019-11-14] MEDS: ELIQUIS PO SCH ×2 (10:25→21:16)
[2019-11-14] MEDS: MIRALAX PO SCH (10:25)
[2019-11-14] MEDS: CALTRATE 600 + D PO SCH (10:25)
[2019-11-14] MEDS: CENTRUM SILVER PO SCH (10:25)
[2019-11-14] MEDS: PATIENT'S OWN MED PO SCH ×4 (18:10→18:11)
--- NOTE | 2019-11-14 19:05 | PROGRESS NOTE ---
DATE: 11/14/2019 SUBJECTIVE: Patient seems to be feeling better today compared with yesterday. Her left shoulder pain is better. I will remove the Resendez catheter. No bowel movement today, so she is getting MiraLAX now. The plan is to send this patient to a rehab center. OBJECTIVE: Vital Signs: Temperature 98 degrees, pulse 73, respiratory rate 20, blood pressure 140/64, oxygen saturation 98 on room air. HEENT: Head normocephalic, no trauma. PERRLA. Neck: Supple. No JVD. No masses. Central trachea. Chest: Clear to auscultation. No wheezing. No rales. Tenderness to palpation and some wound due to recent surgery, but they look clean, dry, and intact. Abdomen: Soft, nontender, nondistended. No hepatosplenomegaly. Extremities: Left lower extremity swollen, around 2+, pitting edema. It is getting better though. She has some pain to palpation bilaterally. Neurologic: This patient is awake, alert. She is oriented x3. No focal deficits, but pain at the level of the left shoulder with mobilization. LABORATORY: WBC 6.5, hemoglobin 11.1, hematocrit 36.1, platelets 343,000. Sodium 139, potassium 4.3, chloride 103, bicarbonate 24, BUN 17, creatinine 1, glucose 93, calcium 8.9, magnesium 1.9. ASSESSMENT AND PLAN: 1. Acute deep venous thrombosis of the left lower extremity. Patient has been placed on Lovenox twice a day, but this has been stopped already, and I put her on Eliquis twice a day. It looks like at home she was taking Eliquis just once a day, and she had stopped that medication to get the surgery done. 2. Recent left rotator cuff surgery, which is painful. Continue with pain management. 3. Hypothyroidism. Continue with Synthroid. 4. Hyperlipidemia. Continue with statins. 5. Anemia, stable. 6. Arthritis. Continue with symptomatic treatment. 7. Generalized weakness and physical deconditioning. I have requested Licensed Occupational Therapy Assistant to evaluate this patient for rehab center placement. 8. I have placed this patient on Eliquis 10 mg p.o. twice a day for 7 days, and then 5 mg p.o. twice a day. The patient seems to understand. I will continue with the same management. 9. Constipation. Continue with MiraLAX to see how she does. cc: Agustín Jeffery MD
[2019-11-14] MEDS: OXY IR PO PRN (19:28)
[2019-11-15] MEDS: OXY IR PO PRN ×2 (06:14→14:18)
[2019-11-15] MEDS: PRILOSEC PO SCH (06:14)
[2019-11-15] MEDS: SYNTHROID PO SCH (06:15)
[2019-11-15 08:07] LABS: BASO# 0.02 X1000 (0.0-0.2); BASO% 0.3 % (0.0-0.8); EOS# 0.11 X1000 (0.0-0.7); EOS% 1.8 % (0.0-10.0); HEMATOCRIT 33.4 % (37.0-47.0); HEMOGLOBIN 10.2 g/dL (12.0-16.0); LYMPH% 31.4 % (20.5-51.1); MCH 27.9 PG (27-31); MCHC 30.5 g/dL (33-37); MCV 91.3 FL (81-99); MONO# 0.53 X1000 (0.11-0.59); MONO% 8.7 % (1.7-9.3); MPV 9.6 FL (7.4-10.4); NEUT% 57.8 % (42.2-75.2); PLT 364 X1000 (130-400); RBC 3.66 XMIL (4.2-5.4); RDW 13.9 % (11.5-14.5); WBC 6.06 X1000 (4.8-10.8)
[2019-11-15 08:58] LABS: ALB/GLOB RATIO 1.1; ALBUMIN 3.1 g/dL (3.5-5.0); CALCIUM 9.4 mg/dL (8.8-10.2); CREATININE 1.1 mg/dL (0.5-0.9); POTASSIUM 5.4 mmol/L (3.5-5.1); TOTAL BILIRUBIN 0.55 mg/dL (0.20-1.00); TOTAL PROTEIN 5.8 g/dL (6.3-8.3)
[2019-11-15] MEDS: ELIQUIS PO SCH ×2 (11:18→21:30)
[2019-11-15] MEDS: CALTRATE 600 + D PO SCH (11:18)
[2019-11-15] MEDS: CENTRUM SILVER PO SCH (11:18)
[2019-11-15] MEDS: PATIENT'S OWN MED PO SCH ×4 (11:19→11:21)
[2019-11-15] MEDS: MIRALAX PO SCH (11:19)
[2019-11-15] MEDS ORDERED: DULCOLAX PR ONE (11:29)
--- NOTE | 2019-11-15 18:23 | Diag Imaging Result Doc PS360 ---
EXAM: CHEST-PORTABLE HISTORY: for rehab placement TECHNIQUE: Single view COMPARISON: None. FINDINGS: The lungs are well expanded. The heart is not enlarged. The vessels are not distended. There are no infiltrates. No effusion identified. IMPRESSION: Negative exam. Electronically signed by Josh Flynn 11/15/2019 6:21 PM
--- NOTE | 2019-11-15 19:15 | PROGRESS NOTE ---
DATE: 11/15/2019 SUBJECTIVE: No big changes compared with yesterday. She is feeling a little bit better today. She is having bowel movements. I will remove the Resendez catheter today. OBJECTIVE: Vital Signs: Temperature 97.3 degrees, pulse 69, respiratory rate 20, blood pressure 128/70, oxygen saturation 100% on room air. HEENT: Head normocephalic, no trauma. PERRLA. Neck: Supple. No JVD. No masses. Central trachea. Chest: Clear to auscultation. No wheezing. No rales. Tenderness to palpation at the level of the left shoulder from her recent surgery. Abdomen: Soft, nontender, nondistended. No hepatosplenomegaly. Extremities: Left lower extremity swollen 2 to 3+ pitting edema. Pain to palpation bilaterally. Neurological: Awake, alert, and oriented x3. No focal deficits. LABORATORY: WBC 6, hemoglobin 10.2, hematocrit 33.4, platelets 364,000 sodium 140, potassium 5.4, chloride 103, bicarbonate 26, BUN 16, creatinine 1.1, glucose 102, calcium 9.4. ASSESSMENT AND PLAN: 1. Acute DVT of the left lower extremity. Patient has been placed on Eliquis twice a day, 10 mg for 7 days and then 5 mg p.o. twice a day. We will continue with same management. She used to be on Eliquis before but just once a day and she stopped before the surgery. 2. Left rotator cuff surgery, which is painful, continue with pain management. 3. Hypothyroidism, continue with Synthroid. 4. Hyperlipidemia, I discontinued her statins because of a slight increase of her liver function tests. 5. Anemia, stable. 6. Arthritis. Continue with same treatment. 7. Generalized weakness and physical deconditioning. 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 8. Constipation, resolved. cc: Agustín Jeffery MD
[2019-11-16] MEDS: PRILOSEC PO SCH (06:14)
[2019-11-16] MEDS: SYNTHROID PO SCH (06:14)
[2019-11-16 08:26] LABS: ALB/GLOB RATIO 1.1; ALBUMIN 3.1 g/dL (3.5-5.0); CALCIUM 9.1 mg/dL (8.8-10.2); CREATININE 1.1 mg/dL (0.5-0.9); POTASSIUM 4.1 mmol/L (3.5-5.1); TOTAL BILIRUBIN 0.55 mg/dL (0.20-1.00)
[2019-11-16] MEDS: PATIENT'S OWN MED PO SCH ×4 (10:48→10:49)
[2019-11-16] MEDS: MIRALAX PO SCH (10:48)
[2019-11-16] MEDS: CENTRUM SILVER PO SCH (10:48)
[2019-11-16] MEDS: ELIQUIS PO SCH ×2 (10:48→22:10)
[2019-11-16] MEDS: CALTRATE 600 + D PO SCH (10:48)
--- NOTE | 2019-11-16 11:52 | ORTHOPAEDICS PROGRESS NOTE ---
DATE: 11/16/2019 SUBJECTIVE: The patient is a pleasant 74-year-old female, who was admitted hospital with a DVT left lower extremity. She is status post arthroscopic rotator cuff repair of left shoulder on 11/04/2019. She is currently resting comfortably. PHYSICAL EXAMINATION: Left upper extremity, her wounds look good. There are no signs or symptoms of infection. Able to flex her thumb and fingers. She has expected tenderness with gentle movement. IMPRESSIONS: Arthroscopic rotator cuff tear left shoulder. PLAN: At this point, we will discontinue her sutures. Patient is stable from an orthopedic standpoint with regards to discharge for inpatient rehabilitation. We will have her on passive range of motion exercises left upper extremity. The patient will follow up in the office after discharge from rehab. cc: Joey Piper MD
--- NOTE | 2019-11-16 16:48 | PROGRESS NOTE ---
DATE: 11/16/2019 SUBJECTIVE: No big changes compared with yesterday. She seems to be a little bit stronger, but still having a lot of difficulty walking. Resendez catheter has been removed. She seems to be stable. OBJECTIVE: Vital Signs: Temperature 97.5 degrees, pulse 72, respiratory rate 20, blood pressure 134/67 oxygen saturation 98 on room air. HEENT: Head normocephalic, no trauma. PERRLA. Neck: Supple. No JVD. No masses. Central trachea. Chest: Clear to auscultation. No wheezing. No rales. Tenderness to palpation at the level of the left shoulder from recent surgery. Abdomen: Soft, nontender, nondistended. No hepatosplenomegaly. Extremities: Left lower extremity swollen, 2 to 3+ pitting edema. No clubbing. No cyanosis. Neurological: Awake alert. She is oriented x3. No focal deficits but weakness. LABORATORY: Sodium 138, potassium 4.1, chloride 103, bicarbonate 24, BUN 22, creatinine 1.1, glucose 111, calcium 9.1. AST 37, ALT 36, alkaline phosphatase 159, albumin 3.1. ASSESSMENT AND PLAN: 1. Acute deep venous thrombosis of the left lower extremity. Patient has been placed on Eliquis twice a day, 10 mg twice a day for 7 days and then 5 mg p.o. twice a day. Continue with same management. She used to be on Eliquis before but just once a day and then she stopped it before the surgery. 2. Left rotator cuff surgery, which is painful. Continue with same management. Feeling better. 3. Hypothyroidism continue with Synthroid. 4. Hyperlipidemia. I have discontinued her statins momentarily because of her elevation of the liver function test. 5. Anemia stable. 6. Arthritis continue with arthritis. Continue with same management. 7. Generalized weakness and physical deconditioning. 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 8. Constipation, resolved. I will put this patient on MiraLAX twice a day. cc: Agustín Jeffery MD
[2019-11-16] MEDS: MIRALAX PO PRN (22:15)
--- NOTE | 2019-11-16 22:46 | ORTHOPAEDICS PROGRESS NOTE ---
DATE: 11/14/2019 SUBJECTIVE: Ms. Cuevas is sitting up in a bedside chair with no complaints at this time. She was admitted to the hospital with a DVT and is awaiting rehab placement at this time. She is under the understanding that she will be going home today. She had arthroscopic rotator cuff repair on 11/04/2019. Her only complaint at this time is mild pain to her left shoulder. PHYSICAL EXAM: Ms. Cuevas's sutures are still in place to her left shoulder from her arthroscopic rotator cuff repair. There is no surrounding redness to suggest any infection at this time. She has good structural steel worker strength and her sensation is intact distally. She is having pain to the area as is expected post surgery. IMPRESSION: 1. Arthroscopic rotator cuff repair, left shoulder. 2. Deep vein thrombosis. PLAN: At this point, Ms. Cuevas is awaiting rehab placement. She is under the understanding that she is going today once a bed is available. She will begin her physical therapy once in rehab which will include passive range of motion of her left shoulder. Her sutures can be removed in 2 days. She will follow up in office when she is discharged from rehab. All of her questions were answered. Dictated by JAMEE Chatterjee for Joey Piper MD cc: Joey Piper MD [facility] CENTERMonisha
[2019-11-17 08:00] LABS: HEMATOCRIT 34.4 % (37.0-47.0); HEMOGLOBIN 10.8 g/dL (12.0-16.0); MCHC 31.4 g/dL (33-37); MCV 92.2 FL (81-99); MPV 9.6 FL (7.4-10.4); RBC 3.73 XMIL (4.2-5.4); RDW 14.1 % (11.5-14.5); WBC 5.45 X1000 (4.8-10.8)
[2019-11-17 08:14] LABS: ALB/GLOB RATIO 1.1; ALBUMIN 3.2 g/dL (3.5-5.0); CALCIUM 9.3 mg/dL (8.8-10.2); POTASSIUM 4.3 mmol/L (3.5-5.1); TOTAL BILIRUBIN 0.48 mg/dL (0.20-1.00)
[2019-11-17] MEDS: PRILOSEC PO SCH (09:14)
[2019-11-17] MEDS: SYNTHROID PO SCH (09:15)
[2019-11-17] MEDS: ELIQUIS PO SCH (09:16)
[2019-11-17] MEDS: PATIENT'S OWN MED PO SCH ×4 (09:16→09:17)
[2019-11-17] MEDS: CENTRUM SILVER PO SCH (09:16)
[2019-11-17] MEDS: MIRALAX PO SCH (09:16)
[2019-11-17] MEDS: CALTRATE 600 + D PO SCH (09:16)
[2019-11-17] MEDS: MIRALAX PO PRN (09:21)
[2019-11-17] MEDS: OXY IR PO PRN ×2 (09:44→09:49)
[2019-11-17] MEDS ORDERED: ATIVAN IV ONE (10:54)
[2019-11-17] MEDS ORDERED: ATIVAN PO SCH (11:00)
[2019-11-17 13:26] VITALS: BP 135/50
--- NOTE | 2019-11-17 13:41 | PROGRESS NOTE ---
DATE: 11/17/2019 SUBJECTIVE: When I evaluated this patient, she was complaining of shortness of breath and she was nauseated. As per the patient, she was having a panic attack. She has been trying to go to the bathroom for a bowel movement, and she had 2 small hard bowel movements, but I do not think it is enough. So, I will go ahead and ask for an enema for this patient. I do not want her to walk all the way to the bathroom. I think she needs for now to go to the bedside commode. She is a really anxious patient and she has been having panic attacks on and off at home. A good week would be 2 panic attacks per week. I will put this patient back on her Ativan. As far as I know, she had never had a panic attack during this hospitalization. Under the medications that she was allergic to it was placed lorazepam (which is Ativan), but it has been removed now. She takes this medication at home without any problem. OBJECTIVE: Vital Signs: Temperature 97.5 degrees, pulse 72, respiratory rate 16, blood pressure 128/52, oxygen saturation 100% on room air. HEENT: Head normocephalic, no trauma. PERRLA. Neck: Supple. No JVD. No masses. Central trachea. Chest: Clear to auscultation. No wheezing. No rales. Tenderness to palpation at the level of the shoulder from recent surgery. Abdomen: Soft, nontender, nondistended. No hepatosplenomegaly. Extremities: Left lower extremity is swollen. There is 2+ to 3+ pitting edema. No clubbing. No cyanosis. Neurological examination: The patient is awake, alert. She is oriented x3. She does not have any focal deficits, but generalized weakness. LABORATORY: WBC 5.4, hemoglobin 10.8, hematocrit 34.4, platelets 399. Sodium 140, potassium 4.3, chloride 103, bicarbonate 24. BUN 19, creatinine 1, glucose 99, calcium 9.3. AST 30, ALT 32, alkaline phosphatase 150, albumin 3.2. ASSESSMENT AND PLAN: 1. Acute deep vein thrombosis of the left lower extremity. Continue with Eliquis twice a day 10 mg; this would be done for 7 days, and then 5 mg oral twice a day. Continue with same management. She used to be on Eliquis before, but apparently she started taking it just once a day 5 mg and then she stopped before the surgery. 2. Left rotator cuff surgery which is painful. Continue with same management. Orthopedic surgery has been evaluating this patient. 3. Hypothyroidism. Continue with Synthroid. 4. Hyperlipidemia. I have discontinued her statins momentarily because of her elevation of the liver function tests. The alkaline phosphatase has been chronically elevated, and AST and ALT today are within normal limits. Alkaline phosphatase has been elevated at least since the first day of admission. 5. Anemia, stable. 6. Arthritis, continue with the same management. 7. Generalized weakness, physical deconditioning, pending rehab center placement. 8. Constipation. Continue with MiraLAX. I have requested an enema. 9. Anxiety with panic attacks. She takes Ativan at home 0.5 mg p.o. twice a day as needed. I will put a schedule today and tomorrow will re-evaluate the patient. cc: Agustín Jeffery MD
--- NOTE | 2019-11-17 14:52 | DISCHARGE SUMMARY ---
ADMISSION DATE: 11/08/2019 DISCHARGE DATE: DISCHARGE DIAGNOSES: 1. Acute deep venous thrombosis of the left lower extremity. 2. Left rotator cuff surgery. 3. Hypothyroidism. 4. Hyperlipidemia. 5. Anemia. 6. Arthritis. 7. Generalized weakness/physical deconditioning. 8. Constipation. 9. Anxiety with panic attacks. PROCEDURES PERFORMED: 1. CT angiogram dated 11/10/2019, impression: Mild subsegmental atelectasis at the left lower lung zones bilaterally. No evidence of PE or other definite acute chest pathology otherwise. 2. Chest x-ray dated 11/15/2019, impression: Negative exam. CONSULTS: Orthopedic Surgery Department, Dr. Albert/Dr. Piper. HOSPITAL COURSE: A 74-year-old, female with past medical history of hyperlipidemia, hypothyroidism, peripheral vascular disease, arthritis, status post left rotator cuff repair, admitted on 11/08/2019. She had surgery of the left shoulder, and she followed up in the clinic as an outpatient, and her left leg was swollen compared with the right one, and she was found to have a large DVT extending from her groin to her knee. She has been already on Eliquis because she had peripheral vascular disease, and it looks like she had bilateral femoral stents back in 2014, but she was taking only 5 mg of Eliquis daily, and then it was stopped at the moment of the surgery. She was hospitalized. She was placed on Lovenox twice a day, and then we started this patient back on Eliquis, but at this time 10 mg twice a day for 7 days, followed by 5 mg twice a day. She will need to follow up with her primary care doctor for this, and also follow up with Orthopedic Surgery Department at the end of the rehabilitation. Her sutures can be removed in 2 days. OBJECTIVE: Vital Signs: Temperature 98 degrees, pulse 85, respiratory rate 16, blood pressure 135/50, oxygen saturation 95% on room air. HEENT: Head normocephalic. No trauma. PERRLA. Neck: Supple. No JVD. No masses. Central trachea. Chest: Clear to auscultation. No wheezing. No rales. Abdomen: Soft, nontender, nondistended. No hepatosplenomegaly. Extremities: There is 2+ to 3+ pitting edema on the left side. No clubbing, no cyanosis. Neurological: The patient is awake and alert. She is oriented x3. No focal deficit at this moment. LABORATORY DATA: WBC 5.4, hemoglobin 10.8, hematocrit 34.4, platelets 399,000. Sodium 140, potassium 4.3, chloride 103, bicarbonate 24, BUN 19, creatinine 1, glucose 99, calcium 9.3. DISCHARGE MEDICATIONS: 1. Eliquis 10 mg p.o. b.i.d. for 2 more days, then 5 mg p.o. b.i.d. 2. Lipitor 1 tablet p.o. at bedtime. 3. Dulcolax 10 mg per rectal daily as needed for constipation, especially if MiraLAX is not working. 4. Tart keith capsule 1 capsule p.o. daily. 5. Calcium carbonate/vitamin D3/mineral 1 tablet p.o. daily. 6. Cinnamon bark 1 capsule p.o. daily. 7. Lasix 20 mg p.o. daily as needed. 8. Osteo Bi-Flex tablet 1 tablet p.o. daily. 9. Synthroid 1 tablet p.o. daily, 112 mcg. 10. Lorazepam 0.5 mg p.o. twice a day as needed for anxiety. 11. Omeprazole 1 capsule 40 mg p.o. daily. 12. Oxycodone IR 5 mg p.o. every 3 hours as needed for pain. 13. Adipex-P 1 capsule p.o. daily. 14. MiraLAX 17 grams p.o. b.i.d. as needed for constipation. TIME SPENT: Time discharging this patient was 35 minutes. cc: Agustín Jeffery MD
== END 2019-11-17 15:44 | DRG 301 ==
LOC: ED 09:28 → 3N 17:16 → SUATTDRO 17:16
PROVIDERS: ATTEND Internal Medicine